=== PATIENT | male | born 1935 | race Caucasian/White ===

== ENCOUNTER 2023-01-16 11:07 | Emergency (ER) | payer OTHER, BC ==
[2023-01-16 12:00] LABS: Hematocrit 41.9 % (39.6-49.0); Lymphocytes % 15.8 % (15.3-44.8); MCV 96.4 fL (80-100); MPV 6.9 fL (7.6-11.3); RBC Red Blood Cell Count 4.35 M/uL (4.33-5.43)
[2023-01-16 12:01] LABS: Protime INR 1.08
[2023-01-16] MEDS ORDERED: MECLIZINE HCL 12.5 MG TAB ONE (12:09)
--- NOTE | 2023-01-16 12:13 | RAD REPORT ---
EXAM DESCRIPTION: Nellie Single View01/16/2023 11:38 am CLINICAL HISTORY: weakness COMPARISON: No comparisons TECHNIQUE: Portable AP view of the chest. FINDINGS: The lungs are clear mild streaky bibasilar opacities, could reflect mild fibrosis. No pne umothorax or effusion. The cardiomediastinal contours are unremarkable. IMPRESSION: No acute cardiopulmonary process. 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
[2023-01-16 12:18] LABS: Albumin 3.6 g/dL (3.4-5.0); Bilirubin Direct 0.2 mg/dL (0-0.2); Bilirubin Indirect, Calculated 1.1 mg/dL (0.2-0.8); Bilirubin Total 1.3 mg/dL (0.2-1.0); Magnesium 2.2 mg/dL (1.6-2.4); Potassium 4.3 mEq/L (3.5-5.1); Protein, Total 7.4 g/dL (6.4-8.2); Troponin High Sensitivity 7.4 pg/mL (<58.9)
--- NOTE | 2023-01-16 12:26 | RAD REPORT ---
EXAM DESCRIPTION: CT - Head Brain Wo Cont - 01/16/2023 12:06 pm CLINICAL HISTORY: DIZZINESS COMPARISON: No comparisons TECHNIQUE: Noncontrast head CT images ad were obtained without IV contrast. Multiplanar reformats we re generated and reviewed. All CT scans are performed using dose optimization technique as appropriate and may include automated exposure control or mA/KV adjustment according to patient size. FINDINGS: No intracranial hemorrhage, mass, or edema. Midline structures are unremarkable. Normal ventricular caliber for age. Small region of hypoattenuation along the right inferior cerebellar hemisphere. Aguero-white matter dif ferentiation is otherwise preserved, without evidence of acute infarct. No abnormal extra-axial fluid collections. Mastoid air cells patchy opacification. Visualized portions of the paranasal sinuses are clear. No acute bony findings. IMPRESSION: Small region of hypoattenuation along the right inferior cerebellar hemisphere, suggesti ve of ischemia which could be subacute to chronic. No other evidence of an acute intracranial process.
[2023-01-16] MEDS ORDERED: ONDANSETRON 4 MG/2 ML VIAL ONE (13:42)
[2023-01-16 13:49] LABS: Specific Gravity 1.027 (1.005-1.030); Transitional Epithelial <5 /HPF (None Seen); Urine Bacteria None Seen /HPF (<20); Urine Bilirubin NEGATIVE (Negative); Urine Blood Negative (Negative); Urine Clarity Clear (Clear); Urine Color Yellow (Yellow); Urine Glucose NEGATIVE (Negative); Urine Mucus Slight /HPF (None Seen); Urine Protein TRACE (Negative); Urine Urobilinogen Normal (Normal); Urine pH 6.5 (5.0-7.0)
--- NOTE | 2023-01-16 14:19 | EDPHYS ---
Physician Documentation [facility] Name: Deb Cardoza Age: 87 yrs Sex: Male : 1935 Arrival Date: 01/16/2023 Time: 11:07 Bed 13 Private MD: ED Physician Karis Triana HPI: 01/16 11:51 This 87 yrs old Male presents to ER via Wheelchair with complaints of Dizziness, sp3 Nausea, Vision Problem. 11:51 87-year-old male with no past medical history who is here visiting his family from [address] presents with 2-day history of vertigo and dizziness particularly upon any movement. He states he has had some right ear congestion but otherwise denies any ringing or any headache. He denies prior incidence of CVA, TIA, peripheral vascular disease, or prior vertigo. On review of systems, he denies headache, neck pain, shortness of breath, chest pain, nausea, vomiting, diarrhea, abdominal pain, rash, focal neurological deficit, or any other signs or symptoms at this time.. Historical: - Allergies: 11:21 No Known Allergies; vg1 - Home Meds: 11:21 None [Active]; vg1 - PMHx: 11:21 None; vg1 - PSHx: 11:21 WESLEY Knee; WESLEY Hip; vg1 - Immunization history:: Client reports receiving the 2nd dose of the Covid vaccine. - Social history:: Smoking status: Patient denies any tobacco usage or history of. ROS: 11:52 Constitutional: Negative for fever, chills, and weight loss, Eyes: Negative for injury, sp3 pain, redness, and discharge, Neck: Negative for injury, pain, and swelling, Cardiovascular: Negative for chest pain, palpitations, and edema, Respiratory: Negative for shortness of breath, cough, wheezing, and pleuritic chest pain, Abdomen/GI: Negative for abdominal pain, nausea, vomiting, diarrhea, and constipation, Back: Negative for injury and pain, MS/Extremity: Negative for injury and deformity, Skin: Negative for injury, rash, and discoloration, Psych: Negative for depression, anxiety, suicide ideation, homicidal ideation, and hallucinations, Allergy/Immunology: Negative for hives, rash, and allergies, Endocrine: Negative for neck swelling, polydipsia, polyuria, polyphagia, and marked weight changes, Hematologic/Lymphatic: Negative for swollen nodes, abnormal bleeding, and unusual bruising. 11:52 All other systems are negative. Exam: 11:52 Constitutional: This is a well developed, well nourished patient who is awake, alert, sp3 and in no acute distress. Head/Face: Normocephalic, atraumatic. Eyes: Pupils equal round and reactive to light, extra-ocular motions intact. Lids and lashes normal. Conjunctiva and sclera are non-icteric and not injected. Cornea within normal limits. Periorbital areas with no swelling, redness, or edema. ENT: Nares patent. No nasal discharge, no septal abnormalities noted. External auditory canals are clear. Oropharynx with no redness, swelling, or masses, exudates, or evidence of obstruction, uvula midline. Mucous membranes moist. Neck: Trachea midline, no thyromegaly or masses palpated, and no cervical lymphadenopathy. Supple, full range of motion without nuchal rigidity, or vertebral point tenderness. No Meningismus. Chest/axilla: Normal chest wall appearance and motion. Nontender with no deformity. No lesions are appreciated. Cardiovascular: Regular rate and rhythm with a normal S1 and S2. No gallops, murmurs, or rubs. Normal PMI, no JVD. No pulse deficits. Respiratory: Lungs have equal breath sounds bilaterally, clear to auscultation and percussion. No rales, rhonchi or wheezes noted. No increased work of breathing, no retractions or nasal flaring. Abdomen/GI: Soft, non-tender, with normal bowel sounds. No distension or tympany. No guarding or rebound. No evidence of tenderness throughout. Back: No spinal tenderness. No costovertebral tenderness. Full range of motion. Skin: Warm, dry with normal turgor. Normal color with no rashes, no lesions, and no evidence of cellulitis. MS/ Extremity: Pulses equal, no cyanosis. Neurovascular intact. Full, normal range of motion. Neuro: Awake and alert, GCS 15, oriented to person, place, time, and situation. Cranial nerves II-XII grossly intact. Motor strength 5/5 in all extremities. Sensory grossly intact. Cerebellar exam normal. Normal gait. Psych: Awake, alert, with orientation to person, place and time. Behavior, mood, and affect are within normal limits. 11:52 ECG was reviewed by the Attending Physician. EKG demonstrates normal sinus rhythm at 63 bpm with normal intervals except for first-degree AV block at 300 ms, normal QRS, normal axis, nonspecific diffuse ST/T changes without evidence of acute ischemia. EKG has artifact. Vital Signs: 11:20 BP 139 / 91; Pulse 80; Resp 14; Temp 97.9(O); Pulse Ox 100% on R/A; Weight 89.36 kg; vg1 Height 6 ft. 0 in. ; Pain 0/10; 11:47 BP 122 / 86; Pulse 69; Resp 16; Pulse Ox 99% on R/A; sg5 12:30 BP 131 / 84; Pulse 51; Resp 16; Pulse Ox 100% on R/A; Pain 0/10; sg5 13:15 BP 139 / 89 LA Supine; Pulse 56; Resp 16; Pulse Ox 97% on R/A; sg5 13:20 BP 155 / 82 LA Sitting; Pulse 57; Resp 16; Pulse Ox 96% on R/A; sg5 13:25 BP 144 / 74 LA Standing; Pulse 56; Resp 16; Pulse Ox 98% on R/A; sg5 14:17 BP 131 / 84; Pulse 58; Resp 16; Pulse Ox 100% on R/A; sg5 11:20 Body Mass Index 26.72 (89.36 kg, 182.88 cm) vg1 11:20 Pain Scale: Adult vg1 12:30 Pain Scale: Adult sg5 MDM: 11:22 Patient medically screened. sp3 11:53 Data reviewed: vital signs, nurses notes, lab test result(s), EKG, radiologic studies. sp3 ED course: 87-year-old male with no past medical history now with vertigo symptoms. I believe patient most likely has peripheral vertigo and not central vertigo however we will obtain CT scan of the head, chest x-ray, EKG, laboratory values and administer meclizine p.o. with both diagnostic and therapeutic. I am not highly suspicious for intracranial hemorrhage, TIA/CVA spectrum, embolic event, sepsis, shock, meningitis, or any other concerning pathology at this time.. 14:16 ED course: Patient is now much improved with vertigo resolved. I explained to patient sp3 extensively the difference between peripheral vertigo and central vertigo including pathology and anatomy of the inner ear. He understands and will look for signs of any stroke or other changes and return here immediately. He is in the local area until mid January before he heads back to [place]. Patient's daughter was also in the room and all of this was explained to her as well. They know to return at any time for any other new or different symptoms or for any concerns that they have. Patient will be safely discharged at this time and all of this has been done with joint decision-making amongst everybody involved.. 01/16 11:24 Order name: UAM; Complete Time: 13:59 sp3 01/16 11:56 Order name: Basic Metabolic Panel; Complete Time: 12:31 EDND 01/16 11:56 Order name: Liver (Hepatic) Function; Complete Time: 12:31 EDND 01/16 11:56 Order name: Troponin High Sensitivity; Complete Time: 12:31 [facility] 01/16 11:56 Order name: NT PRO-BNP; Complete Time: 12:31 [facility] 01/16 11:56 Order name: Magnesium; Complete Time: 12:31 [facility] 01/16 11:56 Order name: CBC with Automated Diff; Complete Time: 13:01 EDND 01/16 11:56 Order name: Protime (+INR); Complete Time: 12:31 EDND 01/16 11:33 Order name: Head Brain Wo Cont; Complete Time: 12:31 EDND 01/16 11:36 Order name: Chest Single View; Complete Time: 12:31 [facility] 01/16 11:24 Order name: EKG; Complete Time: 13:06 3 01/16 11:24 Order name: Cardiac monitoring; Complete Time: 11:42 3 01/16 11:24 Order name: EKG - Nurse/Tech; Complete Time: 11:42 3 01/16 11:24 Order name: IV Saline Lock; Complete Time: 11:46 3 01/16 11:24 Order name: Labs collected and sent; Complete Time: 11:46 3 01/16 11:24 Order name: O2 Per Protocol; Complete Time: 11:42 3 01/16 11:24 Order name: O2 Sat Monitoring; Complete Time: 11:42 3 01/16 13:01 Order name: Misc. Order: ambulate patient; Complete Time: 13:36 ss Administered Medications: 12:13 Drug: Meclizine PO 25 mg Route: PO; sg5 13:36 Drug: Ondansetron IVP 4 mg Route: IVP; Site: right antecubital; sg5 Disposition Summary: 01/16/23 14:18 Discharge Ordered Location: Home sp3 Condition: Stable sp3 Diagnosis - Peripheral vertigo, dizziness sp3 Followup: sp3 - With: Private Physician - When: Upon discharge from the Emergency Department - Reason: Continuance of care Discharge Instructions: - Discharge Summary Sheet sp3 - Vertigo sp3 Forms: - Medication Reconciliation Form sp3 - Thank You Letter sp3 - Antibiotic Education sp3 - Prescription Opioid Use sp3 Prescriptions: - Meclizine 25 mg Oral Tablet - take 1 tablet by ORAL route every 8 hours As needed; 30 tablet; Refills: 0, sp3 Product Selection Permitted Signatures: Dispatcher [employer] EDMS Citlaly Mcgraw RN RN ss Genoveva Gonzalez RN RN vg1 Karis Triana MD MD sp3 Caryn Barreto RN RN sg5 Corrections: (The following items were deleted from the chart) 11:45 11:35 CT-HEAD/BRAIN W/O CONTRAST ordered. EDMS EDMS 13:17 13:06 Chest Single View+RAD.RAD.BRZ ordered. EDMS EDMS 13:25 13:06 Head Brain Wo Cont+CT.RAD.BRZ ordered. EDMS EDMS 13:46 13:06 BASIC METABOLIC PANEL+C.LAB.BRZ ordered. EDMS EDMS 13:46 13:06 CBC+H.LAB.BRZ ordered. EDMS EDMS 13:46 13:06 HEPATIC FUNCTION+C.LAB.BRZ ordered. EDMS EDMS 13:46 13:06 MAGNESIUM+C.LAB.BRZ ordered. EDMS EDMS 13:46 13:06 PROBNP+C.LAB.BRZ ordered. EDMS EDMS 13:46 13:06 PROTIME (+INR)+COAG.LAB.BRZ ordered. EDMS EDMS 13:46 13:06 Troponin High Sensitivity+C.LAB.BRZ ordered. EDMS EDMS
--- NOTE | 2023-01-16 14:19 | ER ---
Nurse's Notes [facility] Name: Deb Cardoza Age: 87 yrs Sex: Male : 1935 Arrival Date: 01/16/2023 Time: 11:07 Bed 13 Private MD: Diagnosis: Peripheral vertigo, dizziness Presentation: 01/16 11:20 Chief complaint: Patient states: dizziness, blurred vision, nausea and sleepiness x 2 vg1 days. Denies vomiting or diarrhea or any recent falls. Coronavirus screen: Vaccine status: Patient reports receiving the 2nd dose of the covid vaccine. Client denies travel out of the [place] in the last 14 days. Ebola Screen: Patient negative for fever greater than or equal to 101.5 degrees Fahrenheit, and additional compatible Ebola Virus Disease symptoms Patient denies exposure to infectious person. Patient denies travel to an Ebola-affected area in the 21 days before illness onset. Initial Sepsis Screen: Does the patient meet any 2 criteria? No. Patient's initial sepsis screen is negative. Does the patient have a suspected source of infection? No. Patient's initial sepsis screen is negative. Risk Assessment: Do you want to hurt yourself or someone else? Patient reports no desire to harm self or others. Onset of symptoms was January 14, 2023. 11:20 Method Of Arrival: Wheelchair vg1 11:20 Acuity: KAHLIL 3 vg1 Triage Assessment: 11:21 General: Appears in no apparent distress. Behavior is calm, cooperative. Pain: Denies vg1 pain. Neuro: Level of Consciousness is awake, alert, obeys commands, Oriented to person, place, time, situation, Reports blurred vision. Cardiovascular: Patient's skin is warm and dry. Respiratory: Airway is patent Respiratory effort is even, unlabored. GI: Reports nausea, Patient currently denies diarrhea, vomiting. : No signs and/or symptoms were reported regarding the genitourinary system. Historical: - Allergies: 11:21 No Known Allergies; vg1 - Home Meds: 11:21 None [Active]; vg1 - PMHx: 11:21 None; vg1 - PSHx: 11:21 WESLEY Knee; WESLEY Hip; vg1 - Immunization history:: Client reports receiving the 2nd dose of the Covid vaccine. - Social history:: Smoking status: Patient denies any tobacco usage or history of. Screenin:23 [facility] ED Fall Risk Assessment (Adult) History of falling in the last 3 months, vg1 including since admission No falls in past 3 months (0 pts). Abuse screen: Denies threats or abuse. Denies injuries from another. Nutritional screening: No deficits noted. Tuberculosis screening: No symptoms or risk factors identified. Assessment: 11:46 General: Appears in no apparent distress. comfortable, Behavior is calm, cooperative, sg5 appropriate for age. Pain: Denies pain. Neuro: Level of Consciousness is awake, alert, obeys commands, Oriented to person, place, time, situation, Appropriate for age Reports dizziness, since 01/14/23. Cardiovascular: Capillary refill < 3 seconds Patient's skin is warm and dry. Respiratory: Airway is patent Trachea midline Respiratory effort is even, unlabored. GI: No signs and/or symptoms were reported involving the gastrointestinal system. Abdomen is flat, non-distended. : No signs and/or symptoms were reported regarding the genitourinary system. EENT: No signs and/or symptoms were reported regarding the EENT system. Derm: No signs and/or symptoms reported regarding the dermatologic system. Musculoskeletal: No signs and/or symptoms reported regarding the musculoskeletal system. Vital Signs: 11:20 BP 139 / 91; Pulse 80; Resp 14; Temp 97.9(O); Pulse Ox 100% on R/A; Weight 89.36 kg; vg1 Height 6 ft. 0 in. ; Pain 0/10; 11:47 BP 122 / 86; Pulse 69; Resp 16; Pulse Ox 99% on R/A; sg5 12:30 BP 131 / 84; Pulse 51; Resp 16; Pulse Ox 100% on R/A; Pain 0/10; sg5 13:15 BP 139 / 89 LA Supine; Pulse 56; Resp 16; Pulse Ox 97% on R/A; sg5 13:20 BP 155 / 82 LA Sitting; Pulse 57; Resp 16; Pulse Ox 96% on R/A; sg5 13:25 BP 144 / 74 LA Standing; Pulse 56; Resp 16; Pulse Ox 98% on R/A; sg5 14:17 BP 131 / 84; Pulse 58; Resp 16; Pulse Ox 100% on R/A; sg5 11:20 Body Mass Index 26.72 (89.36 kg, 182.88 cm) vg1 11:20 Pain Scale: Adult vg1 12:30 Pain Scale: Adult sg5 ED Course: 11:10 Patient arrived in ED. mr 11:12 Karis Triana MD is Attending Physician. sp3 11:16 Caryn Barreto, RN is Primary Nurse. sg5 11:21 Triage completed. vg1 11:21 Arm band placed on. vg1 11:23 Patient has correct armband on for positive identification. Bed in low position. Call vg1 light in reach. Side rails up X2. Adult w/ patient. Client placed on continuous cardiac and pulse oximetry monitoring. NIBP monitoring applied. 11:36 Chest Single View In Process Unspecified. EDMS 11:42 Placed in gown. Warm blanket given. Client placed on continuous cardiac and pulse mm9 oximetry monitoring. NIBP monitoring applied. quality assurance monitor on. Pulse ox on. NIBP on. 11:43 EKG done, by ED staff, reviewed by Karis Triana MD. mm9 11:46 Initial lab(s) drawn, by ED staff, sent to lab. mm9 11:46 Inserted saline lock: 20 gauge in right antecubital area, using aseptic technique. sg5 Blood collected. 12:07 Head Brain Wo Cont In Process Unspecified. EDMS 14:31 No provider procedures requiring assistance completed. IV discontinued. sg5 Administered Medications: 12:13 Drug: Meclizine PO 25 mg Route: PO; sg5 13:36 Drug: Ondansetron IVP 4 mg Route: IVP; Site: right antecubital; sg5 Medication: 14:31 VIS not applicable for this client. sg5 Outcome: 14:18 Discharge ordered by . sp3 14:31 Discharged to home via wheelchair, with family. sg5 14:31 Condition: good 14:31 Discharge instructions given to patient, Instructed on discharge instructions, follow up and referral plans. 14:31 Patient left the ED. sg5 Signatures: Dispatcher [employer] [facility] Dre Arianna GonzalezGenoveva, RN RN vg1 Karis Triana MD MD sp3 Nkechi Oshea mm9 Caryn Barreto, SHASHANK RN sg5
[2023-01-16 14:36] VITALS: TEMP 97.9
[2023-01-16 14:47] VITALS: BP 131/84; O2SAT 100
== END 2023-01-16 14:31 | disposition home or self-care (01) ==
LOC: ER 11:07
DX: H81.391 Other peripheral vertigo, right ear (principal)
CPT/HCPCS: 85025; 81001; 80048; 36415; 83735; 85610; 80076; 84484; 83880; 70450; 71045; 96374; 99285; J8597; J2405; 93005